=== PATIENT | female | born 1950 | race Caucasian/White ===

== ENCOUNTER 2022-03-03 11:01 | Observation (INO) ==
[2022-03-03 12:55] LABS: Basophils % 0.3 %; Eosinophils % 0.3 %; Hematocrit 37.2 % (35.3-44.9); Hemoglobin 12.4 g/dL (11.5-15.4); Immature Granulocytes % 0.3 % (0-4); Lymphocytes # 0.5 K/mcL (0.6-4.6); Lymphocytes % 4.7 %; Mean Corpuscular HGB Conc 33.3 g/dL (31.6-35.5); Mean Corpuscular Volume 95.9 fL (83.0-100.0); Mean Platelet Volume 9.1 fL (9.4-12.4); Monocytes # 0.6 K/mcL (0.0-1.3); Monocytes % 5.4 %; Neutrophils # 10.2 K/mcL (1.6-8.9); Platelet Count 285 K/mcL (140-400); Red Blood Count 3.88 M/mcL (3.82-4.97); Red Cell Distribution Width 12.4 % (11.5-14.5); White Blood Count 11.5 K/mcL (4.3-11.1)
[2022-03-03 13:13] LABS: Calcium 9.8 mg/dL (8.6-10.3); Potassium 2.9 mEq/L (3.5-5.1)
[2022-03-03] MEDS ORDERED: 0.9 % Sodium Chloride 1,000 ML IV ONE (14:40)
[2022-03-03] MEDS ORDERED: Acetaminophen 325 MG TABLET PO PRN (15:51)
[2022-03-03] MEDS ORDERED: Naloxone 0.4 MG/ML INJ IVP PRN (15:51)
[2022-03-03] MEDS ORDERED: Ondansetron 4 MG/2 ML VIAL IVP PRN (15:51)
[2022-03-03] MEDS ORDERED: Ringers Solution, Lactated 1,000 ML IVC SCH (16:00)
[2022-03-03 21:36] VITALS: BP 130/76; PULSE 90; TEMP 98.6; O2SAT 95
[2022-03-04] MEDS ORDERED: *HR* Enoxaparin 40 MG/0.4 ML SYRINGE SQ SCH (06:00)
== END 2022-03-03 23:59 | disposition other institution (70) ==
LOC: EMEROOARM 11:01 → 2ANU 11:01
PROVIDERS: ADMIT Internal Medicine; ATTEND Internal Medicine